=== PATIENT | female | born 1960 | race Caucasian/White ===

== ENCOUNTER → 2016-12-20 | Outpatient (CLI) | payer SELFPAY | PROVIDERS: Visit Provider Family Medicine | DX: Y99.9 Unspecified external cause status (principal) | CPT/HCPCS: 36415; 84443 ==

== ENCOUNTER 2019-05-14 11:02 | Outpatient (REF) | payer SELFPAY ==
[2019-05-14 13:20] LABS: Alanine Aminotransferase 64 U/L (12-78); Albumin Level 4.1 g/dl (3.5-5.0); Albumin/Globulin Ratio 1.4 (1.1-1.8); Alkaline Phosphatase 69 U/L (38-126); Anion Gap 11.1 mEq/L (5-15); Aspartate Amino Transferase 89 U/L (14-36); Bilirubin,Total 0.5 mg/dl (0.2-1.3); Blood Urea Nitrogen 5 mg/dl (7-17); Calcium 9.4 mg/dl (8.4-10.2); Carbon Dioxide 29 mmol/L (22.0-30.0); Chloride 98 mmol/L (98-107); Chol/HDL Ratio 1.7 (1-3.5); Cholesterol 145 mg/dl (140-200); Estimated Glomerular Filt Rate 128 ml/min (>60); GFR (African American) 154 ML/MIN (>60); Globulin 2.9 g/dL (1.3-3.2); Glucose 93 mg/dl (74-100); HDL Cholesterol 83 mg/dl (40-60); Potassium 5.1 mmoL/L (3.5-5.1); Sodium 133 mmol/L (136-145); Triglycerides 52 mg/dl (30-150); VLDL Cholesterol 10 mg/dL (0-40)
[2019-05-14 13:31] LABS: Direct LDL Cholesterol 57.58 mg/dL (100-129)
== END 2019-10-05 19:45 | disposition home or self-care (01) ==
LOC: LAB 11:02
PROVIDERS: Visit Provider Family Medicine
DX: R79.9 Abnormal finding of blood chemistry, unspecified (principal)
CPT/HCPCS: 36415; 80053; 80061; 84443

== ENCOUNTER → 2020-05-06 17:59 | Outpatient (CLI) | payer OTHER, SELFPAY ==
[2020-05-06 19:00] LABS: Basophils # 0.1 K/mm3 (0-0.2); Basophils % 1.6 % (0.1-2.0); Eosinophils # 0.2 K/mm3 (0.0-0.4); Eosinophils % 2.9 % (0.1-12.0); Hematocrit 49.2 % (37.0-47.0); Hemoglobin 16.1 g/dL (12.2-16.2); Lymphocytes # 0.9 K/mm3 (0.7-4.5); Lymphocytes % 18.4 % (10-50); Mean Corpuscular HGB Conc 32.8 g/dL (31.8-35.4); Mean Corpuscular Hemoglobin 31.1 pg (27.0-31.2); Mean Corpuscular Volume 94.8 fl (81-99); Mean Platelet Volume 8.4 fl (7.4-10.4); Monocytes # 0.4 K/mm3 (0.1-1.0); Monocytes % 7.7 % (1.7-9.3); Neutrophils # 3.6 K/mm3 (1.8-7.8); Neutrophils % 69.4 % (37.0-80.0); Platelet Count 293 K/mm3 (142-424); Red Blood Count 5.19 M/mm3 (4.20-5.40); Red Cell Distribution Width 14.3 % (11.5-17.5); White Blood Count 5.1 K/mm3 (4.8-10.8)
[2020-05-06 19:08] LABS: Alanine Aminotransferase 25 U/L (12-78); Albumin Level 4.6 g/dl (3.5-5.0); Albumin/Globulin Ratio 1.4 (1.1-1.8); Alkaline Phosphatase 78 U/L (38-126); Anion Gap 12.3 mEq/L (5-15); Aspartate Amino Transferase 48 U/L (14-36); Bilirubin,Total 0.7 mg/dl (0.2-1.3); Blood Urea Nitrogen 3 mg/dl (7-17); Calcium 9.6 mg/dl (8.4-10.2); Carbon Dioxide 25 mmol/L (22.0-30.0); Chloride 97 mmol/L (98-107); Cholesterol 193 mg/dl (140-200); Estimated Glomerular Filt Rate 165 ml/min (>60); GFR (African American) 199 ML/MIN (>60); Globulin 3.3 g/dL (1.3-3.2); Glucose 93 mg/dl (74-100); Potassium 4.3 mmoL/L (3.5-5.1); Sodium 130 mmol/L (136-145); Total Protein,Serum 7.9 g/dl (6.3-8.2); Triglycerides 59 mg/dl (30-150); VLDL Cholesterol 12 mg/dL (0-40)
[2020-05-06 19:17] LABS: Chol/HDL Ratio 1.6 (1-3.5); HDL Cholesterol 119 mg/dl (40-60)
[2020-05-06 19:20] LABS: Direct LDL Cholesterol 52.83 mg/dL (100-129)
[2020-05-06 19:39] LABS: Thyroid Stimulating Hormone 0.09 uIU/mL (0.465-4.68)
[2020-05-06 20:11] LABS: 25-OH Vitamin D, Total < 12.8 ng/mL (30-100)
== END ==
PROVIDERS: Visit Provider Physician Assistant
DX: Z00.00 Encounter for general adult medical examination without abnormal findings (principal); E03.9 Hypothyroidism, unspecified; R53.83 Other fatigue; E55.9 Vitamin D deficiency, unspecified
CPT/HCPCS: 80053; 80061; 82306; 84439; 84443; 85025

== ENCOUNTER → 2020-05-14 07:53 | Outpatient (CLI) | payer OTHER, SELFPAY ==
--- NOTE | 2020-05-14 07:54 | MM_ITS ---
PROCEDURE: MM DIG SCREENING MAMM BI W/CAD Digital Breast Tomosynthesis Included CLINICAL INDICATION: Breast cancer screening by mammogram History of breast cancer patient's maternal grandmother diagnosed after menopause. COMPARISON: [facility] DIGMAMMS MAMMOGRAM SCREEN-DIGITAL COMPUTER SYSTEMS ANALYST N/C from 04/26/1998 MG DIGMAMMS MAMMOGRAM SCREEN-DIGITAL COMPUTER SYSTEMS ANALYST N/C from 04/20/2004 MG DMSB DIGITAL MAMM-SCREEN BILATERAL from 04/18/2011 TECHNIQUE: Standard CC and MLO images and 3D Tomosynthesis was obtained. R2 CAD reviewed. FINDINGS: Moderate scattered fibroglandular densities are seen throughout both breasts. There is a benign-appearing macro calcification left breast and there are few scattered microcalcifications in each breast. There is minimal arterial calcification in each breast. There is no suspicious lesion in either breast and no suspicious microcalcifications. IMPRESSION: Fibrofatty parenchyma with no suspicious lesions seen BI-RAD Category: 2 Benign Finding(s) FOLLOW-UP: 1YR 1 Year Follow-up (A letter has been sent to the patient regarding results of the study.) Dictated by: Dr. Matt Rodriguez MD 05/18/2020 14:27 Dr. Matt Rodriguez MD in [place] 05/18/2020 14:27
--- NOTE | 2020-05-14 07:54 | CT_ITS ---
PROCEDURE: CT LUNG SCREENING CLINICAL INDICATION: nicotine dependence Current smoker 50 pack year smoking history COMPARISON: CT ABDPELW/O CT ABD PELVIS W/O CONTRAST from 08/28/2016 TECHNIQUE: The exam was performed on a GE Light Speed [address] scanner using 2.90 mGy CTDI. A low dose helical CT CHEST was performed on a multi-detector scanner. All CT scans at the facility use one or more dose reduction, viz: automated exposure control, ma/kV adjustment per patient size (including targeted exams where dose is matched to indication, i.e. head), or iterative reconstruction technique. The LDCT was performed in a facility that meets the criteria for the screening program. Data regarding this exam was submitted to ACR which is an approved registry. The order for this exam indicates that it came as a result of a lung cancer screening counseling shard decision-making visit that included all the elements required of such a visit including smoking cessation. The radiologist interpreting this exam meets the CMS criteria for the LDCT lung cancer screening program. The exam is reported using the Lung-RADS classification scale and reported to the ACR registry. NOTE: This study was performed for the specific purposes of lung cancer screening and is not an alternative to diagnostic chest CT. RADIATION DOSE: CTDI vol(CT dose Index-volume) = 2.90mG DLP (Dose Length Product) = 104.46 mGcm FINDINGS: COPD changes. Scattered areas of scarring. 3 mm subpleural nodule right upper lobe image 21 series 3. Bronchial thickening is present. Calcified granuloma left lower lobe. 3 mm nodule left upper lobe anteriorly. No suspicious nodules. OTHER FINDINGS: There are few small mediastinal lymph nodes. Coronary artery calcifications are present. 2 cm left adrenal nodule with an average density of 5 Hounsfield units consistent with an adenoma not significantly changed from 08/28/2016. Degenerative changes thoracic spine. IMPRESSION: Lung-RADS Category 2 Benign Appearance or Behavior Follow-up: Continue annual screening with LDCT in 12 months Dictated by: John Alejandra MD 05/23/2020 12:10 John Alejandra MD in [place] 05/23/2020 12:10
--- NOTE | 2020-05-14 07:54 | US_ITS ---
PROCEDURE: US ABDOMEN LIMITED CLINICAL INDICATION: RUQ pain COMPARISON: No exams were available for comparison FINDINGS: PANCREAS: Unremarkable. No obvious mass or abnormal fluid collection. No ductal dilatation LIVER: No focal liver lesions demonstrated. Homogeneous echogenicity. No intrahepatic biliary ductal dilatation evident. There is appropriate direction of blood flow within a non dilated portal vein RIGHT KIDNEY: Unremarkable. Normal size and echogenicity. No hydronephrosis GALLBLADDER: Prior cholecystectomy. Common bile duct is normal 4 mm. IMPRESSION: Prior cholecystectomy otherwise negative Dictated by: John Alejandra MD 05/14/2020 09:56 John Alejandra MD in [place] 05/14/2020 09:56
== END ==
PROVIDERS: PCP Physician Assistant; Visit Provider Physician Assistant
DX: Z12.31 Encounter for screening mammogram for malignant neoplasm of breast (principal); R10.11 Right upper quadrant pain; Z87.891 Personal history of nicotine dependence; Z12.2 Encounter for screening for malignant neoplasm of respiratory organs
CPT/HCPCS: 71271; 76705; 77063; 77067

== ENCOUNTER → 2020-06-15 06:22 | Outpatient (CLI) | payer OTHER, SELFPAY ==
--- NOTE | 2020-06-15 06:22 | CA_ITS ---
APPROVED REPORT Exam: Pharmacologic Technologist: Arleen Mistry, Ht: 5 ft 2 in Wt: 121 lbs BSA: 1.54 m2 HR: 64 bpm BP: 132/65 mmHg Rhythm: NSR,NORMAL Indications: Chest pain, Shortness of Breath Medical History Medical History: Hyperlipidemia, Medications: Omeprazole,,,,, Vitamin D3,,,,, HCTZ,,,,, Citalopram,,,,, Buspirone,,,,, SyMBICORT,,,,, Famotidine,,,,, Vitamin D2,,,,, Levothyoxine,,,,, Allergies: ERYTHROMYCIN,MACROBIOTICS,MORPHINE Cardiac Risk Factors: Hyperlipidemia, Smoking Stress Test Details Test: LEXISCAN HR Resting HR: 66 bpm Max Heart Rate (APMHR): 163.981911 bpm Max HR Achieved: 98 bpm Target HR (85% APMHR): 138.460958 bpm % of APMHR: 60.12 Recovery HR: 92 bpm BP Resting BP: 132.0/65.0 mmHg Max BP: 136.0/60.0 mmHg Recovery BP: 124.0/62.0 mmHg ECG Resting ECG: NSR,NORMAL Clinical Exercise duration: 04:00 min Highest Stage Achieved: Exercise capacity: 1.0 METs Stress ECG Conclusion DURING INFUSION PATIENT HAD MILD CHEST TIGHTNESS,SOA,MALAISE AND MILD STOMACH DISCOMFORT. NO ARRHYTHMIAS/ECTOPY. NO SIGNIFICANT ST-T CHANGES. UNREMARKABLE LEXISCAN STRESS. MYOVIEW IMAGES REPORTED SEPARATELY Electronically signed by : Sravan Fuentes, 06/18/2020 08:35:58
--- NOTE | 2020-06-15 06:22 | NM_ITS ---
APPROVED REPORT Exam: Nuclear Stress Test Indication: Chest pain, SOB, CAD, High cholesterol, Tobacco use Patient Location: Outpatient Stress Tech: Arleenraven AGGARWAL Tech:Doris Barron, ARRT, RT (R)(N) Ht: 5 ft 2 in Wt: 118 lbs Bra Size: 34B HR: 64 bpm BP: 132/65 mmHg BSA: 1.53 m2 BMI: 21.5 History: Chest pain, SOB, CAD, High cholesterol, Tobacco use Procedure: Patient received a 0.4 mg of intravenous Lexiscan, resting heart rate 64 bpm, resting blood pressure 132/65 mmHg, with Lexiscan maximum heart rate achived was 94 bpm which is % of the maximum predicted heart rate and blood pressure was 129/65 mmHg. Cardiac Stress and Resting SPECT Images: Cardiac Stress and Resting SPECT images were obtained using technetium 99m Myoview 31.2 mCi stress and 10.24 mCi at rest. Ejection Fraction normal at 66%. No wall motion abnormality. No reversible or fixed defects. Conclusion: Normal Electronically signed by : John Alejandra MD 06/16/2020 14:45:14
--- NOTE | 2020-06-15 08:10 | HMH.ITSHM ---
Current Home Medications as stated by this patient Stacey Long or collections representative. []LEVOTHYROXINE INHALER ASA HCTZ BUSPIRONE FAMOTIDINE CITALOPRAM
== END ==
PROVIDERS: PCP Physician Assistant; Visit Provider Internal Medicine
DX: R07.9 Chest pain, unspecified (principal); R06.00 Dyspnea, unspecified; I25.10 Atherosclerotic heart disease of native coronary artery without angina pectoris; J44.9 Chronic obstructive pulmonary disease, unspecified; K21.9 Gastro-esophageal reflux disease without esophagitis; F32.9 Major depressive disorder, single episode, unspecified; F41.9 Anxiety disorder, unspecified
CPT/HCPCS: 78452; 93017; 93306; A9502; J2785

== ENCOUNTER → 2020-06-18 13:03 | Outpatient (CLI) | payer OTHER, SELFPAY ==
--- NOTE | 2020-06-18 13:21 | CT_ITS ---
PROCEDURE: CT HEAD/BRAIN WO/W CON CLINICAL INDICATION: headache Severe headache, chronic headache COMPARISON: No exams were available for comparison TECHNIQUE: IV Contrast: 100ML Isovue 370 Axial images obtained. All CT scans at the facility use one or more dose reduction, viz: automated exposure control, ma/kV adjustment per patient size (including targeted exams where dose is matched to indication, i.e. head), or iterative reconstruction technique. FINDINGS: No midline shift, mass effect, intracranial hemorrhage, hydrocephalus, or extra-axial fluid collection is evident. No enhancing lesions are evident. The calvarium has an unremarkable appearance. No mastoid effusion. No sinus air-fluid level. Minimal mucosal thickening right maxillary sinus. IMPRESSION: Negative CT head without and with contrast Dictated by: John Alejandra MD 06/18/2020 16:49 Jhon Alejandra MD in [place] 06/18/2020 16:49
[2020-06-18 13:41] LABS: Blood Urea Nitrogen 4 mg/dl (7-17); Estimated Glomerular Filt Rate 165 ml/min (>60); GFR (African American) 199 ML/MIN (>60)
== END ==
PROVIDERS: Nurse Practitioner Family; PCP Physician Assistant; Visit Provider Internal Medicine
DX: R06.00 Dyspnea, unspecified (principal); R07.9 Chest pain, unspecified; R51.9 Headache, unspecified; F17.200 Nicotine dependence, unspecified, uncomplicated; F32.9 Major depressive disorder, single episode, unspecified; F41.9 Anxiety disorder, unspecified; I25.10 Atherosclerotic heart disease of native coronary artery without angina pectoris; J44.9 Chronic obstructive pulmonary disease, unspecified; K21.9 Gastro-esophageal reflux disease without esophagitis
CPT/HCPCS: 36415; 70470; 82565; 84520; Q9967

== ENCOUNTER → 2020-07-12 12:55 | Outpatient (CLI) | payer OTHER, SELFPAY ==
[2020-07-12 13:55] VITALS: PULSE 88; PULSE 91
== END ==
PROVIDERS: PCP Physician Assistant; Visit Provider Physician Assistant
DX: J44.9 Chronic obstructive pulmonary disease, unspecified (principal)
CPT/HCPCS: 94060; 94640; 94726; 94729

== ENCOUNTER → 2021-07-27 19:14 | Outpatient (CLI) | payer OTHER, SELFPAY ==
[2021-07-27 13:20] LABS: Basophils # 0.1 K/mm3 (0-0.2); Basophils % 3.1 % (0.1-2.0); Eosinophils # 0.2 K/mm3 (0.0-0.4); Eosinophils % 4.5 % (0.1-12.0); Hematocrit 45.5 % (37.0-47.0); Hemoglobin 15.7 g/dL (12.2-16.2); Lymphocytes % 24.1 % (10-50); Mean Corpuscular HGB Conc 34.5 g/dL (31.8-35.4); Mean Corpuscular Hemoglobin 31.9 pg (27.0-31.2); Mean Corpuscular Volume 92.5 fl (81-99); Monocytes # 0.4 K/mm3 (0.1-1.0); Monocytes % 8.2 % (1.7-9.3); Neutrophils # 2.7 K/mm3 (1.8-7.8); Neutrophils % 63.2 % (37.0-80.0); Platelet Count 296 K/mm3 (142-424); Red Blood Count 4.92 M/mm3 (4.20-5.40); Red Cell Distribution Width 13.3 % (11.5-17.5); White Blood Count 4.3 K/mm3 (4.8-10.8)
[2021-07-27 14:13] LABS: Hemoglobin A1C 5.3 % (4.0-6.0)
[2021-07-27 14:49] LABS: Alanine Aminotransferase 33 U/L (12-78); Albumin Level 5.1 g/dl (3.5-5.0); Albumin/Globulin Ratio 1.4 (1.1-1.8); Alkaline Phosphatase 90 U/L (38-126); Anion Gap 15.9 mEq/L (5-15); Aspartate Amino Transferase 53 U/L (14-36); Blood Urea Nitrogen 4 mg/dl (7-17); Calcium 9.7 mg/dl (8.4-10.2); Carbon Dioxide 26 mmol/L (22.0-30.0); Chloride 89 mmol/L (98-107); Chol/HDL Ratio 1.7 (1-3.5); Cholesterol 176 mg/dl (140-200); Estimated Glomerular Filt Rate 164 ml/min (>60); GFR (African American) 198 ML/MIN (>60); Globulin 3.6 g/dL (1.3-3.2); Glucose 86 mg/dl (74-100); HDL Cholesterol 101 mg/dl (40-60); Potassium 4.9 mmoL/L (3.5-5.1); Sodium 126 mmol/L (136-145); Total Protein,Serum 8.7 g/dl (6.3-8.2); Triglycerides 68 mg/dl (30-150); VLDL Cholesterol 14 mg/dL (0-40)
[2021-07-27 15:00] LABS: Direct LDL Cholesterol 58.27 mg/dL (100-129)
[2021-07-27 15:05] LABS: 25-OH Vitamin D, Total 38.2 ng/mL (30-100)
[2021-07-27 15:06] LABS: T4 (Thyroxine) 10.2 ug/dl (5.53-11.0)
[2021-07-27 15:19] LABS: Thyroid Stimulating Hormone 0.03 uIU/mL (0.465-4.68)
== END ==
PROVIDERS: Visit Provider Nurse Practitioner Family
DX: R42 Dizziness and giddiness (principal); I25.10 Atherosclerotic heart disease of native coronary artery without angina pectoris; E11.9 Type 2 diabetes mellitus without complications; R53.83 Other fatigue; R39.9 Unspecified symptoms and signs involving the genitourinary system
CPT/HCPCS: 80053; 80061; 82306; 83036; 84436; 84443; 85025; 87086

== ENCOUNTER → 2022-01-13 14:25 | Outpatient (CLI) | payer OTHER, SELFPAY | PROVIDERS: PCP Student in an Organized Health Care Education/Training Program; Visit Provider Student in an Organized Health Care Education/Training Program | DX: N39.0 Urinary tract infection, site not specified (principal); J04.0 Acute laryngitis | CPT/HCPCS: 87086; C9803; U0003; U0005 ==

== ENCOUNTER → 2022-01-31 14:05 | Outpatient (CLI) | payer OTHER, SELFPAY ==
--- NOTE | 2022-01-31 14:05 | CT_ITS ---
FINAL REPORT CLINICAL HISTORY: lung cancer screening, SMOKER 47 YEARS, 1.5 PACKS PER DAY, COPD, EMPHYSEMA COMPARISON: 05/14/2020 FINDINGS: Low-Dose Chest CT Axial images were obtained from the lung apex to the mid abdomen by computed tomography. Low-dose protocol was utilized. CTDI vol (mGy): 2.90 DLP (mGy-cm): 96.38 There is no axillary adenopathy. There is no hilar or mediastinal adenopathy. The heart is proper size. There are moderate coronary artery calcifications. There is no pericardial or pleural effusion. Lung window images demonstrate mild changes of emphysema and mild pulmonary scarring. There are 2 adjacent nodules in the left upper lobe measuring approximately 2-3 mm, stable and seen on images 35 and 37. There is a 2 mm nodule in the lateral right upper lobe, stable and seen on image 17. There is a calcified granuloma in the left lower lobe. No new mass or nodule is identified. Limited images of the upper abdomen demonstrates a left adrenal low-attenuation nodule, stable and likely an adenoma. IMPRESSION: Stable nodules as above. No new mass or nodule identified. Lung RADS category 2. Recommend 12 month follow-up low-dose chest CT. Reviewed, Interpreted and Dictated by Marco Kramer III, MD Transcribed by Gloria Allison Authenticated and [facility]
--- NOTE | 2022-01-31 14:05 | US_ITS ---
FINAL REPORT CLINICAL HISTORY: nodule neck, pt complained of tender areas on both sides of neck FINDINGS: Limited sonographic images of the bilateral neck was obtained. There are several borderline sized neck nodes. IMPRESSION: Several borderline sized neck nodes. Reviewed, Interpreted and Dictated by Marco Kramer III, MD Transcribed by Sona Andrade Authenticated and [facility]
== END ==
PROVIDERS: PCP Student in an Organized Health Care Education/Training Program; Visit Provider Student in an Organized Health Care Education/Training Program
DX: R22.1 Localized swelling, mass and lump, neck (principal); Z87.891 Personal history of nicotine dependence; Z12.2 Encounter for screening for malignant neoplasm of respiratory organs
CPT/HCPCS: 71271; 76536

== ENCOUNTER → 2023-02-07 07:24 | Outpatient (CLI) | payer OTHER, SELFPAY ==
[2023-02-07 19:14] LABS: Basophils # 0.1 K/mm3 (0-0.2); Basophils % 1.2 % (0.1-2.0); Eosinophils # 0.2 K/mm3 (0.0-0.4); Hematocrit 43.6 % (37.0-47.0); Hemoglobin 14.9 g/dL (12.2-16.2); Lymphocytes # 1.1 K/mm3 (0.7-4.5); Lymphocytes % 18.3 % (10-50); Mean Corpuscular HGB Conc 34.1 g/dL (31.8-35.4); Mean Corpuscular Hemoglobin 32.5 pg (27.0-31.2); Mean Corpuscular Volume 95.2 fl (81-99); Mean Platelet Volume 8.7 fl (7.4-10.4); Monocytes # 0.4 K/mm3 (0.1-1.0); Monocytes % 6.9 % (1.7-9.3); Neutrophils # 4.4 K/mm3 (1.8-7.8); Neutrophils % 70.6 % (37.0-80.0); Platelet Count 346 K/mm3 (142-424); Red Blood Count 4.58 M/mm3 (4.20-5.40); White Blood Count 6.2 K/mm3 (4.8-10.8)
[2023-02-07 19:38] LABS: Alanine Aminotransferase 19 U/L (12-78); Albumin Level 3.8 g/dl (3.5-5.0); Albumin/Globulin Ratio 1.2 (1.1-1.8); Alkaline Phosphatase 102 U/L (38-126); Anion Gap 10.1 mEq/L (5-15); Aspartate Amino Transferase 28 U/L (14-36); Bilirubin,Total 0.5 mg/dl (0.2-1.3); Blood Urea Nitrogen 2 mg/dl (7-17); Calcium 8.5 mg/dl (8.4-10.2); Carbon Dioxide 21 mmol/L (22.0-30.0); Chloride 99 mmol/L (98-107); Chol/HDL Ratio 1.7 (1-3.5); Cholesterol 134 mg/dl (140-200); Estimated Glomerular Filt Rate 126 ml/min (>60); GFR (African American) 152 ML/MIN (>60); Globulin 3.1 g/dL (1.3-3.2); Glucose 88 mg/dl (74-100); HDL Cholesterol 80 mg/dl (40-60); Potassium 4.1 mmoL/L (3.5-5.1); Sodium 126 mmol/L (136-145); Total Protein,Serum 6.9 g/dl (6.3-8.2); Triglycerides 86 mg/dl (30-150); VLDL Cholesterol 17 mg/dL (0-40)
[2023-02-07 19:53] LABS: 25-OH Vitamin D, Total 48.2 ng/mL (30-100)
[2023-02-07 20:12] LABS: Thyroid Stimulating Hormone 0.02 uIU/mL (0.465-4.68)
== END ==
PROVIDERS: PCP Nurse Practitioner Family; Visit Provider Nurse Practitioner Family
DX: I25.10 Atherosclerotic heart disease of native coronary artery without angina pectoris (principal); N39.0 Urinary tract infection, site not specified; R30.0 Dysuria; B96.29 Other Escherichia coli [E. coli] as the cause of diseases classified elsewhere
CPT/HCPCS: 80053; 80061; 82306; 84443; 85025; 87086

== ENCOUNTER 2023-10-16 16:45 | Outpatient (CLI) | payer OTHER, SELFPAY ==
--- NOTE | 2023-10-16 16:49 | XR_ITS ---
PROCEDURE INFORMATION: Exam: XR Right Hip Exam date and time: 10/16/2023 4:52 PM Age: 62 years old Clinical indication: Hip pain; Right hip; Additional info: R hip pain TECHNIQUE: Imaging protocol: Radiologic exam of the right hip. Views: 2 or 3 views hip with pelvis when performed. COMPARISON: No relevant prior studies available. FINDINGS: Bones/joints: There is mild osteoarthritis of the hips with joint space narrowing, productive changes, and subchondral sclerosis. There are partially visualized degenerative changes of the sacroiliac joints and lumbar spine as well as some degenerative disease of the pubic symphysis. The osseous structures are intact, with no signs of acute fracture, dislocation, or malalignment. Age-related degenerative changes are observed. There is no evidence of abnormal bone density or destructive lesions. Soft tissues: The soft tissues appear within normal limits. IMPRESSION: At the time of imaging, the study shows no acute osseous abnormalities but does reveal signs of age-related degenerative changes.
== END 2023-10-16 23:59 | disposition home or self-care (01) ==
LOC: RAD 16:46
PROVIDERS: PCP Physician Assistant; Visit Provider Nurse Practitioner Family
DX: M25.551 Pain in right hip (principal)
CPT/HCPCS: 73502

== ENCOUNTER 2024-04-08 06:39 | Day surgery (SDC) | payer MEDICARE, SELFPAY ==
[2024-04-04 10:20] VITALS: BMI 27.6
[2024-04-08] VITALS (7 sets, daily range): BP systolic 143–156; BP diastolic 77–92; PULSE 77–84; RESP 18; TEMP 35.8–36.2; O2SAT 93–97
[2024-04-08] MEDS: PHENYLEPHRINE 2.5% OPHTH SOLN 2ML OP ×3 (06:57→06:59)
[2024-04-08] MEDS: TETRACAINE 0.5% OPTH SOL 15ML OP ×3 (06:58→06:59)
[2024-04-08] MEDS: CYCLOPENTOLATE 2% OPHTH SOLN 2ML BOTTLE OP ×3 (06:58→06:59)
[2024-04-08] MEDS: LIDOCAINE 1% PF 2ML AMPULE 2 ML IJ (08:10)
[2024-04-08] MEDS: MIDAZOLAM 2MG/2ML VIAL 1 MG IV (08:10)
[2024-04-08] MEDS: TOBRAMYCIN/DEX OPTH SUSP 2.5ML OP (08:10)
[2024-04-08] MEDS: SODIUM CHLORIDE 0.9% 10ML FLUSH SYRINGE 10 ML IV (08:10)
[2024-04-08] MEDS: TIMOLOL 0.5% OPTH SOLN 5ML OP (08:10)
--- NOTE | 2024-04-08 11:39 | HMH.PROCNOTE ---
[facility] Procedure Note Date: 04/08/24 Time: 11:39 Procedure Note:: Preoperative Diagnosis: Cataract combined NS Cortical Complex [Left] Eye Postop diagnosis: same Operation: Microscopic phacoemulsification with intraocular lens implant [Left] Eye Specimen: None Blood Loss: None The patient was examined in the office with a complaint of poor vision in the [left] eye. The patient reports that this interferes with ADLs such as reading, watching TV and/or driving or the vision is like looking through a foggy haze and is very troubling. The patient was examined and found to have a visually significant cataract with best corrected vision of [20/400] by refraction and/or glare testing. Treatment options, risks and benefits were explained and the patient elected to have cataract surgery in an attempt to improve their vision. The patient had the eye anesthetized with topical tetracaine, the eye ways prepped and draped in the usual fashion for cataract surgery. A paracentesis and a temporal keratotomy were made. 0.2cc of 1% lidocaine PF was placed into the anterior chamber. And aqueous/viscoelastic exchange was done and a 360 degree capsulorexis was performed. Through hydrodissection and delineation with BSS on a cannula was done. The lens nucleus was phecoemulsified with CDE of [7.26]. Residual cortical material was removed using automated I&A The capsular bag was deepened with viscoelastica and a PCIOL was placed in the capsular bag with good centration and stability. Residual viscoelastic was removed using automated I&A. The keratotomy incision was hydrated with BSS on a cannula. The wound were checked and found to be water tight. IOP was checked digitally and adjusted as needed so as not to be too high. 1 drop of timolol 0.5%, ofloxacin, prednisolone acetate and ketorolac was instilled and eye shield taped over the eye. The patient was taken to recovery in good condition and will be seen postoperatively.
== END 2024-04-08 08:38 | disposition home or self-care (01) ==
PROVIDERS: PCP Nurse Practitioner Family; Visit Provider Ophthalmology
PROC: (CPT 66984; principal; 2024-04-08 08:15)
DX: H26.9 Unspecified cataract (principal)
CPT/HCPCS: 66984; J2250; V2632

== ENCOUNTER 2024-04-22 06:38 | Day surgery (SDC) | payer MEDICARE, SELFPAY ==
[2024-04-21 11:14] VITALS: BMI 28.3
[2024-04-22] MEDS: PHENYLEPHRINE 2.5% OPHTH SOLN 2ML OP ×3 (07:01→07:12)
[2024-04-22] MEDS: CYCLOPENTOLATE 2% OPHTH SOLN 2ML BOTTLE OP ×3 (07:01→07:12)
[2024-04-22] MEDS: TETRACAINE 0.5% OPTH SOL 15ML OP ×4 (07:01→07:40)
[2024-04-22 07:06] VITALS: BP 124/79; PULSE 78; RESP 18; TEMP 36.4; O2SAT 96
[2024-04-22 08:27] VITALS: BP 154/80; PULSE 74; RESP 18; O2SAT 94
[2024-04-22] MEDS: SODIUM CHLORIDE 0.9% 10ML FLUSH SYRINGE 10 ML IV (08:27)
[2024-04-22] MEDS: MIDAZOLAM 2MG/2ML VIAL 1 MG IV (08:27)
[2024-04-22 08:32] VITALS: BP 137/74; PULSE 76; RESP 18; O2SAT 90
[2024-04-22] MEDS: LIDOCAINE 1% PF 2ML AMPULE 2 ML IJ (08:36)
[2024-04-22] MEDS: TIMOLOL 0.5% OPTH SOLN 5ML OP (08:36)
[2024-04-22] MEDS: TOBRAMYCIN/DEX OPTH SUSP 2.5ML OP (08:36)
[2024-04-22 08:37] VITALS: BP 139/81; PULSE 76; RESP 18; O2SAT 94
[2024-04-22 08:41] VITALS: BP 142/85; PULSE 77; RESP 18; O2SAT 94
[2024-04-22 08:50] VITALS: BP 142/79; PULSE 76; RESP 16; O2SAT 97
--- NOTE | 2024-04-22 10:39 | P.PCN_ITS ---
[facility] Procedure Note Date: 04/22/24 Time: 10:39 Procedure Note:: Preoperative Diagnosis: Cataract combined NS Cortical Complex [Right] Eye Postop diagnosis: same Operation: Microscopic phacoemulsification with intraocular lens implant [Right] Eye Specimen: None Blood Loss: None The patient was examined in the office with a complaint of poor vision in the [right] eye. The patient reports that this interferes with ADLs such as reading, watching TV and/or driving or the vision is like looking through a foggy haze and is very troubling. The patient was examined and found to have a visually significant cataract with best corrected vision of [20/400] by refraction and/or glare testing. Treatment options, risks and benefits were explained and the patient elected to have cataract surgery in an attempt to improve their vision. The patient had the eye anesthetized with topical tetracaine, the eye ways prepped and draped in the usual fashion for cataract surgery. A paracentesis and a temporal keratotomy were made. 0.2cc of 1% lidocaine PF was placed into the anterior chamber. And aqueous/viscoelastic exchange was done and a 360 degree capsulorexis was performed. Through hydrodissection and delineation with BSS on a cannula was done. The lens nucleus was phecoemulsified with CDE of [5.94]. Residual cortical material was removed using automated I&A The capsular bag was deepened with viscoelastica and a PCIOL was placed in the capsular bag with good centration and stability. Residual viscoelastic was removed using automated I&A. The keratotomy incision was hydrated with BSS on a cannula. The wound were checked and found to be water tight. IOP was checked digitally and adjusted as needed so as not to be too high. 1 drop of timolol 0.5%, ofloxacin, prednisolone acetate and ketorolac was instilled and eye shield taped over the eye. The patient was taken to recovery in good condition and will be seen postoperatively.
== END 2024-04-22 08:54 | disposition home or self-care (01) ==
PROVIDERS: PCP Nurse Practitioner Family; Visit Provider Ophthalmology
PROC: (CPT 66984; principal; 2024-04-22 08:00)
DX: H25.011 Cortical age-related cataract, right eye (principal)
CPT/HCPCS: 66984; J2250; V2632

== ENCOUNTER 2024-08-19 08:33 | Outpatient (CLI) | payer MEDICARE, SELFPAY ==
[2024-08-19 09:48] LABS: Basophils # 0.1 K/mm3 (0-0.2); Basophils % 1.8 % (0.1-2.0); Eosinophils # 0.3 Kmm3 (0.0-0.4); Eosinophils % 3.9 % (0.1-12.0); Hematocrit 52.9 % (37.0-47.0); Hemoglobin 17.5 g/dL (12.2-16.2); Immature Granulocytes # 0.04 10^3uL; Immature Granulocytes % 0.6 %; Lymphocytes # 0.9 K/mm3 (0.7-4.5); Lymphocytes % 13.9 % (10-50); Mean Corpuscular HGB Conc 33.1 g/dL (31.8-35.4); Mean Corpuscular Volume 93.8 fl (81-99); Mean Platelet Volume 8.4 fl (7.4-10.4); Monocytes # 0.5 K/mm3 (0.1-1.0); Neutrophils # 4.8 K/mm3 (1.8-7.8); Neutrophils % 71.8 % (37.0-80.0); Nucleated Red Blood Cells # 0 10^3/uL; Nucleated Red Blood Cells % 0 %; Platelet Count 253 K/mm3 (142-424); Red Blood Count 5.64 M/mm3 (4.20-5.40); Red Cell Distribution Width 13.6 % (11.5-17.5); Red Cell Distribution Width-SD 46.8 fL; White Blood Count 6.6 K/mm3 (4.8-10.8)
[2024-08-19 10:13] LABS: Albumin Level 4.2 g/dl (3.5-5.0); Chloride 100 mmol/L (98-107); Potassium 4.9 mmoL/L (3.5-5.1); Sodium 130 mmol/L (136-145)
[2024-08-19 10:15] LABS: Alanine Aminotransferase 17 U/L (12-78); Aspartate Amino Transferase 29 U/L (14-36); Blood Urea Nitrogen 9 mg/dl (7-17); Estimated Glomerular Filt Rate 102 ml/min (>60); GFR (African American) 123 ML/MIN (>60)
[2024-08-19 10:16] LABS: Albumin/Globulin Ratio 1.4 (1.1-1.8); Alkaline Phosphatase 160 U/L (38-126); Anion Gap 6.9 mEq/L (5-15); Bilirubin,Total 0.5 mg/dl (0.2-1.3); Carbon Dioxide 28 mmol/L (22.0-30.0); Chol/HDL Ratio 2.8 (1-3.5); Cholesterol 183 mg/dl (140-200); Globulin 3.1 g/dL (1.3-3.2); Glucose 100 mg/dl (74-100); HDL Cholesterol 66 mg/dl (40-60); Total Protein,Serum 7.3 g/dl (6.3-8.2); Triglycerides 103 mg/dl (30-150); VLDL Cholesterol 21 mg/dL (0-40)
[2024-08-19 10:39] LABS: 25-OH Vitamin D, Total 29.2 ng/mL (30-100)
== END 2024-08-19 23:59 | disposition home or self-care (01) ==
LOC: LAB 08:34
PROVIDERS: PCP Nurse Practitioner Family; Visit Provider Nurse Practitioner Family
DX: E55.9 Vitamin D deficiency, unspecified (principal); Z00.00 Encounter for general adult medical examination without abnormal findings; I10 Essential (primary) hypertension; R79.89 Other specified abnormal findings of blood chemistry
CPT/HCPCS: 36415; 80053; 80061; 82306; 83036; 84443; 85025

== ENCOUNTER 2024-10-06 13:22 | Outpatient (CLI) | payer MEDICARE, SELFPAY ==
[2024-10-06 14:22] LABS: Free Thyroxine Index 4.1 ug/dL (5.93-13.13); T4 (Thyroxine) 11.4 ug/dl (5.53-11.0); Triiodothryronine (T3) Uptake 36 % (23.5-40.5)
[2024-10-06 14:23] LABS: Free T4 (Free Thyroxine) 1.63 ng/dl (0.78-2.19)
[2024-10-06 14:36] LABS: Thyroid Stimulating Hormone 3.22 uIU/mL (0.465-4.68)
== END 2024-10-06 23:59 | disposition home or self-care (01) ==
LOC: LAB 13:23
PROVIDERS: PCP Nurse Practitioner Family; Visit Provider Nurse Practitioner Family
DX: R79.89 Other specified abnormal findings of blood chemistry (principal)
CPT/HCPCS: 36415; 84436; 84439; 84443; 84479